=== PATIENT | female | born 1990 | race Caucasian/White ===

== ENCOUNTER 2024-09-30 00:43 | Emergency (ER) | payer OTHER ==
[2024-09-30 00:58] VITALS: BP 101/62; PULSE 78; RESP 18; TEMP 98.4; BMI 29.4
[2024-09-30] MEDS ORDERED: ACETAMINOPHEN INJECTION 100 ML ONE (02:05)
[2024-09-30] MEDS: ACETAMINOPHEN 1000 MG/100 ML BAG IVPB ONE (02:07)
[2024-09-30] MEDS ORDERED: KETOROLAC TROMETHAMINE 15 MG/ML VIAL ONE (02:10)
[2024-09-30] MEDS ORDERED: METOCLOPRAMIDE HCL INJECTION 10 MG/2 ML VIAL ONE (02:11)
[2024-09-30] MEDS: METOCLOPRAMIDE HCL INJECTION 10 MG/2 ML VIAL IVPB ONE (02:13)
[2024-09-30] MEDS: SODIUM CHLORIDE 0.9% 500 ML INFUS.BAG IV ONE (02:13)
[2024-09-30] MEDS: KETOROLAC TROMETHAMINE 15 MG/ML VIAL IVPUSH ONE (02:44)
== END 2024-09-30 03:35 | disposition home or self-care (01) ==
LOC: JER 00:43
PROC: 3E033NZ Introduction of Analgesics, Hypnotics, Sedatives into Peripheral Vein, Percutaneous Approach (ICD-10-PCS; principal; 2024-09-30)
PROC: 3E0233Z Introduction of Anti-inflammatory into Muscle, Percutaneous Approach (ICD-10-PCS; 2024-09-30)
PROC: 3E033GC Introduction of Other Therapeutic Substance into Peripheral Vein, Percutaneous Approach (ICD-10-PCS; 2024-09-30)
DX: R51.9 Headache, unspecified (principal); H53.149 Visual discomfort, unspecified
CPT/HCPCS: 70450-TC; 99285-25; J0131